=== PATIENT | female | born 1955 | race Caucasian/White ===

== ENCOUNTER 2022-02-24 05:55 | Day surgery (SDC) | payer BC ==
[2022-02-24] VITALS (11 sets, daily range): BP systolic 108–125; BP diastolic 57–83; PULSE 66–92; TEMP 97–98
[~2022-02-24] VITALS: Ht 162.6 cm; Wt 62.3 kg
[2022-02-24] MEDS ORDERED: WELLBUTRIN XL300 M1 PO (06:33)
[2022-02-24] MEDS ORDERED: DESYREL 50MG50 MG PO (06:34)
[2022-02-24] MEDS ORDERED: ASPIRIN 32325 MG/TAB PO (06:34)
[2022-02-24] MEDS ORDERED: JUICE PLUS PO (06:35)
--- NOTE | 2022-02-24 16:25 | NUR ---
TO TO ROOM 331 PER BED WITH REPORT FROM TAYLOR CHASE PACU @3080 PT IS A/O X3 DROWSEY BUT AROUSES TO VERBAL. VSS, DRESSINGS TO BILATERAL KNEES CDI CANDICE WRAP OVER DRESSINGS. IV TO LFA.
--- NOTE | 2022-02-24 19:13 | NUR ---
PT REFUSING TORDOL D/T STAGE 3 CKD.
--- NOTE | 2022-02-24 21:24 | NUR ---
Pt doing okay at this time, pt is cold, several blankets on pt and thermostat up, room feels warm. Removed oxygen at this time sats, 100%. Pritchett to dependent drainage, clear yellow urine. Pt does have epidural, pt reports that she has not needed to use it, has no pain at this time. Instructed on use of epidural. Drsg to knees are CDI, both legs elevated on pillows, pillow not under knees. Ice pack to both knees.
--- NOTE | 2022-02-24 22:25 | NUR ---
Pt does not have IS, RT notified
[2022-02-25] VITALS (7 sets, daily range): BP systolic 90–105; BP diastolic 43–54; PULSE 59–85; TEMP 97.3–98.6
--- NOTE | 2022-02-25 01:00 | NUR ---
Pt leaning up in bed some and is rubbing the back of her left knee. Pt reports it is achy. Reminded her to use the epidural M[employer] ORDER SCHEDULER in which she responded with "oh, yeah." Fresh ice packs applied to both knees. Ensuring pillow is not under knees. Pt has no complaints of pain in her right knee. Call light within reach
--- NOTE | 2022-02-25 03:18 | NUR ---
Pt continues to have increase in pain, epidural is maxed out. Anesthesia notified and PRN from epidural order set added as new order. New ice packs applied to both knees at this time
--- NOTE | 2022-02-25 05:08 | NUR ---
Pt rang call light and stated that she did not feel well. Upon entering room, pt did appear to be pale. I asked her in what ways did she not feel well and she was very slow to respond, I did repeat myself several times before she stated that her stomach hurt. Obtained VS during this time, 100/52, pulse 64 and O2 97% on room air. Laid pt head down as he HOB was up, HOB at 30degrees at this time. Pt reports that her knees are still feeling better.
--- NOTE | 2022-02-25 05:32 | NUR ---
Notified NICK Joyner of pt symptoms, no new orders at this time, will continue to monitor
[2022-02-25 06:59] LABS: BASO # 0.1 K/mm3 (0.0-0.2); BASO % 0.4 % (0.0-2.0); EOS % 0.3 % (0.0-4.0); GRAN # 10.3 K/mm3 (1.4-6.5); GRAN % 85.1 % (42.2-75.2); LYMPH # 0.8 K/mm3 (1.2-3.4); LYMPH % 6.5 % (20.0-51.0); MEAN CELL VOLUME 91 fl (80.0-100.0); MEAN CORPUSCULAR HEMOGLOBIN 31 pg (27-31); MEAN CORPUSCULAR HGB CONC 34 g/dl (33.0-37.0); MEAN PLATELET VOLUME 9.7 fl (7.4-10.4); MONO # 0.9 K/mm3 (0.1-0.6); MONO % 7.4 % (1.7-9.3); PLATELET COUNT 278 K/mm3 (130-400); RED BLOOD COUNT 3.28 M/mm3 (4.10-5.30); REDCELL DISTRIBUTION WIDTH-CV 12.7 % (11.5-14.5)
[2022-02-25 07:09] LABS: HEMATOCRIT 29.8 % (37.0-47.0)
[2022-02-25 07:13] LABS: CALCIUM 8.3 mg/dL (8.4-10.2); CREATININE, serum 0.86 mg/dL (0.57-1.11); MAGNESIUM 1.8 mg/dL (1.6-2.6); POTASSIUM 4.4 mmol/L (3.5-4.5)
--- NOTE | 2022-02-25 07:13 | NUR ---
Received shift report from night nurse, Sarah CHASE.
--- NOTE | 2022-02-25 09:53 | NUR ---
Dr. Jordan at the bedside and discontinue hemovac at the right knee. Physical therapist walked patient from the bed to the hallway, patient felt dizzy and assisted back to the recliner and pushed back to the room. Aquacell on bilateral knee intact, drainage noted. See process intervention for notes.
--- NOTE | 2022-02-25 10:13 | NUR ---
Epidural stopped at 1010 per verbal orders from Doctor Jordan. Will contact the Er Registrar to discontinued the epidural.
--- NOTE | 2022-02-25 11:08 | NUR ---
SW met with the patient to discuss discharge plan. The patient lives in [place] with her , Micha (ph#[phone]). She reports independence with ADLs and has a walker. The patient's primary care provider is NICK Corbin in [place] and she receives her medications at the [facility] in [place]. The patient does not have a DPOA-HC. The patient plans to return home with her and receive outpatient PT at a clinic in [place]. No additional needs at this time. *Discharge plan: home with and outpatient PT*
--- NOTE | 2022-02-25 12:11 | NUR ---
Pritchett catheter discontinued at 1200 per orders. Emptied 450cc of clear yellow urine from the bag.
--- NOTE | 2022-02-25 13:34 | NUR ---
Rama: Other Situation: retort fireman went to room on rounds Background: Pt was eating and content Assessment: Pt has no needs right now. Pt appreciated the visit Recommendation: retort fireman will follow up as needed
--- NOTE | 2022-02-25 16:48 | NUR ---
Patient has been walking to the bathroom to void x3 with 2 nurses assistance. Patient sherry right knee when walking.
--- NOTE | 2022-02-25 19:13 | NUR ---
Patient resting in bed, no needs at this time. dressing on bilateral knees intact.
--- NOTE | 2022-02-25 21:39 | NUR ---
pt a&ox4 resting in bed. meds given and assessment complete. pt reports having a "low grade ache" in bilateral knees. teds and scds applied. int to lt wrist. aqaucell dressings are cdi. no needs at this time. call light within reach.
[2022-02-26 04:03] VITALS: BP 91/50; PULSE 77; TEMP 98.4
[2022-02-26 06:55] LABS: HEMATOCRIT 28.5 % (37.0-47.0); HEMOGLOBIN 9.8 g/dl (12.5-16.0)
[2022-02-26 08:15] VITALS: BP 90/60; PULSE 88; TEMP 98.2
--- NOTE | 2022-02-26 11:19 | NUR ---
OT notified SW that they recommend post-acute rehab. PT is also recommending IPR vs home. SW met with the patient to discuss their recommendation and also informed her how the patient's status is [facility] and her insurance is [employer], so options are limited. SW informed her of Inpatient Rehab. The patient agrees that she needs some rehab and that she is not ready to go home yet. She is agreeable to [facility]. The patient informed SW that she does have Medicare as a secondary insurance. She provided SW with a copy of the card. SW notified and provided the Medicare Information to admissions and IPR. SW consulted I[facility]. Vanna, with I[facility], reports that they are submitting for auth.
[2022-02-26 12:08] VITALS: BP 92/57; PULSE 88; TEMP 99.9
[2022-02-26 13:58] LABS: CALCIUM 8.3 mg/dL (8.4-10.2); CREATININE, serum 0.92 mg/dL (0.57-1.11); POTASSIUM 4.4 mmol/L (3.5-4.5)
--- NOTE | 2022-02-26 14:16 | NUR ---
Marion, IPR Director, reports that they received auth and are able to accept the patient today. The patient is to discharge today, 02/26, to [facility]. No additional needs at this time.
[2022-02-26] MEDS ORDERED: ASPIRIN 81M81 MG/TA2 PO (15:04)
[2022-02-26] MEDS ORDERED: ULTRAM 50MG TAB50 MG PO ×2 (15:04)
[2022-02-26] MEDS ORDERED: CEPHALEXIN500 M1 PO (15:04)
[2022-02-26] MEDS ORDERED: ELIQUIS 2.5 PO (16:43)
[2022-02-26] MEDS ORDERED: ROXICODONE 55 MG/TAB PO (16:44)
[2022-03-05] MEDS ORDERED: ULTRAM 50MG TAB50 MG PO ×2 (08:54→09:05)
[2022-03-05] MEDS ORDERED: ELIQUIS 2.5 PO (09:03)
== END 2022-02-26 15:33 ==
LOC: SDCO 05:55 → SURG 16:00 → SDCO 02-26 15:33
PROVIDERS: Orthopaedic Surgery; Physician Assistant
DX: M17.0 Bilateral primary osteoarthritis of knee (principal); F32.A Depression, unspecified; N18.9 Chronic kidney disease, unspecified; D64.9 Anemia, unspecified; Z86.2 Personal history of diseases of the blood and blood-forming organs and certain disorders involving the immune mechanism
CPT/HCPCS: OP; A4314; A9284; C1713; C1776; J0690; J1100; J1580; J1885; J2250; J2270; J2370; J2405; J2704; J2795; J3010; J7120